=== PATIENT | male | born 1950 | race Caucasian/White ===

== ENCOUNTER 2020-06-04 13:35 | Inpatient (IN) | payer OTHER, BC ==
[2020-06-04] MEDS ORDERED: ACETAMINOPHEN 325 MG TABLET (FP) PO ONE (13:49)
[2020-06-04 14:18] LABS: BASO % 1.4 % (0-2.0); HEMATOCRIT 45.3 % (35.4-49); HEMOGLOBIN 15.4 GM/dl (11.7-16.9); LYMPH % 22.9 % (8-40); MCH 29.7 pg (25.7-33.7); MEAN CELL VOLUME 87.4 fl (80-96); MEAN PLT VOLUME 8.6 fl (7.5-11.1); MONO % 8.4 % (3.8-10.2); NEUT % 65.3 % (42.8-82.8); PLATELET COUNT 226 K/MM3 (134-434); RBC 5.18 M/mm3 (4.00-5.60); RDW 13.4 % (11.9-15.9); WHITE BLOOD COUNT 6.2 K/mm3 (4.0-10.8)
[2020-06-04 14:39] LABS: ALBUMIN 4.2 g/dl (3.4-5.0); BILIRUBIN,TOTAL 0.6 mg/dl (0.2-1); CALCIUM 9.2 mg/dl (8.5-10); CREATININE 1.2 mg/dl (0.55-1.3); POTASSIUM 4.5 mmol/L (3.5-5.1); TOT PROT 7.2 g/dl (6.4-8.2)
[2020-06-04] MEDS ORDERED: ASPIRIN 81 MG CHEWABLE TABLETS PO ONE (16:08)
[2020-06-04] MEDS ORDERED: ASPIRIN 81 MG CHEWABLE TABLETS ONE (16:28)
[2020-06-04] MEDS ORDERED: amLODIPine BESYLATE 5 MG TABLET (FP) PO ONE (16:33)
[2020-06-04] MEDS ORDERED: amLODIPine BESYLATE 5 MG TABLET (FP) ONE (17:13)
[2020-06-04 21:02] VITALS: BMI 30.4
[2020-06-04] MEDS: ATORVASTATIN CA 40 MG TABLET (FP) PO SCH (22:20)
[2020-06-05 09:29] LABS: CHLORIDE 106 mmol/L (98-107); POTASSIUM 4.2 mmol/L (3.5-5.1); SODIUM 138 mmol/L (136-145)
[2020-06-05 09:37] LABS: CALCIUM 8.9 mg/dL (8.5-10.1)
[2020-06-05 09:39] LABS: ALBUMIN 3.6 g/dl (3.4-5.0); ANION GAP 6 MMOL/L (8-16); BILIRUBIN,TOTAL 0.7 mg/dL (0.2-1); CO2 27 mmol/L (21-32); GLUCOSE,RANDOM 98 mg/dL (74-106); TOT PROT 6.8 g/dl (6.4-8.2)
[2020-06-05 09:40] LABS: ALK PHOS 82 U/L (45-117); HDL CHOLESTEROL 58 mg/dL (40-60); TRIGLYCERIDES 107 mg/dL (0-150)
[2020-06-05 09:41] LABS: SGOT/AST 16 U/L (15-37); SGPT/ALT 34 U/L (13-61)
[2020-06-05 09:42] LABS: CHOLESTEROL 162 mg/dL (50-200); CREATININE 1.2 mg/dL (0.55-1.3)
[2020-06-05 09:43] LABS: LDL CHOLESTEROL (ONLY SJRH) 88 mg/dL (5-100)
[2020-06-05 09:45] LABS: BASO % 0.7 % (0-2.0); EOS % 2.3 % (0-4.5); HEMOGLOBIN 14.9 GM/dL (11.7-16.9); LYMPH % 28.7 % (8-40); MCH 29.4 pg (25.7-33.7); MCHC 33.8 g/dl (32.0-35.9); MEAN CELL VOLUME 86.9 fl (80-96); MEAN PLT VOLUME 8.8 fl (7.5-11.1); MONO % 10.3 % (3.8-10.2); PLATELET COUNT 219 K/MM3 (134-434); RBC 5.06 M/mm3 (4.00-5.60); RDW 14.1 % (11.9-15.9); WHITE BLOOD COUNT 6.6 K/mm3 (4.0-10.0)
[2020-06-05] MEDS: ASPIRIN 81 MG CHEWABLE TABLETS PO SCH (11:33)
[2020-06-05 12:44] LABS: ERYTHROCYTE SEDIMENTATION RATE 6 mm/hr (0-20)
[2020-06-05] MEDS ORDERED: VALSARTAN 40 MG TABLET PO SCH (14:30)
[2020-06-05] MEDS: LOSARTAN POTASSIUM 25 MG TABLET PO SCH (17:00)
[2020-06-05] MEDS: ENOXAPARIN NA (PORCINE) 40 MG/0.4 ML DISP.SYRIN SQ SCH (17:00)
[2020-06-05] MEDS: ATORVASTATIN CA 40 MG TABLET (FP) PO SCH (21:51)
[2020-06-05] MEDS ORDERED: ACETAMINOPHEN 325 MG TABLET (FP) PO PRN (22:03)
[2020-06-06 08:20] VITALS: BP 118/70; PULSE 82; TEMP 98.2
[2020-06-06] MEDS: ASPIRIN 81 MG CHEWABLE TABLETS PO SCH (09:16)
[2020-06-06] MEDS: ENOXAPARIN NA (PORCINE) 40 MG/0.4 ML DISP.SYRIN SQ SCH (09:16)
[2020-06-06] MEDS: LOSARTAN POTASSIUM 25 MG TABLET PO SCH (09:16)
== END 2020-06-06 10:40 | disposition home or self-care (01) | DRG 305 ==
LOC: FER 13:35 → FM/S 16:24
PROVIDERS: ADMIT Internal Medicine; ATTEND Nurse Practitioner Acute Care
DX: I16.0 Hypertensive urgency (principal); R51.9 Headache, unspecified; Z96.653 Presence of artificial knee joint, bilateral
CPT/HCPCS: 36415; 70450-TC; 70544-TC; 70547-TC; 70551-TC; 71045-TC-FY; 80053; 80061; 81003; 83721; 84484; 85025; 85651; 86140; 93005; 93306-TC; 93880-TC; 97116-GP; 97162-GP; 99285-25; C9803; U0003

== ENCOUNTER 2021-04-22 15:35 | Emergency (ER) | payer OTHER, BC ==
[2021-04-22] MEDS ORDERED: ACETAMINOPHEN 1000 MG/100 ML VIAL IVPB ONE (15:46)
[2021-04-22] MEDS ORDERED: ONDANSETRON 4 MG/2 ML VIAL IVPUSH ONE (15:46)
[2021-04-22] MEDS ORDERED: SODIUM CHLORIDE 0.9% 1000 ML INFUS.BAG IV ONE (15:46)
[2021-04-22] MEDS ORDERED: ACETAMINOPHEN INJECTION 100 ML IVPB ONE (16:03)
[2021-04-22] MEDS ORDERED: ONDANSETRON 4 MG/2 ML VIAL ONE (16:04)
[2021-04-22 16:05] VITALS: BP 109/62; PULSE 97; TEMP 98.8; BMI 28.7
[2021-04-22 16:35] LABS: ALBUMIN 3.2 g/dl (3.4-5.0); BILIRUBIN,TOTAL 0.9 mg/dl (0.2-1); CALCIUM 8.5 mg/dl (8.5-10); CREATININE 1.3 mg/dl (0.55-1.3); TOT PROT 6.2 g/dl (6.4-8.2)
[2021-04-22 17:23] LABS: BASO % 0.2 % (0-2.0); EOS % 0.2 % (0-4.5); HEMATOCRIT 40.3 % (35.4-49); HEMOGLOBIN 13.9 GM/dL (11.7-16.9); LYMPH % 4.4 % (8-40); MCH 29.4 pg (25.7-33.7); MCHC 34.5 g/dl (32.0-35.9); MEAN CELL VOLUME 85.3 fl (80-96); MEAN PLT VOLUME 9.7 fl (7.5-11.1); MONO % 9.5 % (3.8-10.2); NEUT % 85.7 % (42.8-82.8); PLATELET COUNT 149 10^3/uL (134-434); RBC 4.72 M/mm3 (4.00-5.60); RDW 14.1 % (11.9-15.9); WHITE BLOOD COUNT 8.3 K/mm3 (4.0-10.0)
== END 2021-04-22 17:49 | disposition home or self-care (01) ==
LOC: FER 15:35
PROC: 3E033NZ Introduction of Analgesics, Hypnotics, Sedatives into Peripheral Vein, Percutaneous Approach (ICD-10-PCS; principal; 2021-04-22)
PROC: 3E033GC Introduction of Other Therapeutic Substance into Peripheral Vein, Percutaneous Approach (ICD-10-PCS; 2021-04-22)
DX: R11.2 Nausea with vomiting, unspecified (principal)
CPT/HCPCS: 36415; 80053; 85025; 87804; 87807; 96374; 96375; 99284-25; C9803; J0131; U0003; U0005